=== PATIENT | male | born 1985 | race Hispanic/Latino ===

== ENCOUNTER 2018-02-27 13:54 | Emergency (ER) | payer SELFPAY ==
[2018-02-27] MEDS ORDERED: Lidocaine 1% PF 5 ML VIAL ONE (14:11)
[2018-02-27] MEDS ORDERED: Adacel (T-DAP) 0.5 ML VIAL ONE (14:11)
[2018-02-27] MEDS ORDERED: Bacitracin Zinc 1 Packet ONE (14:51)
== END 2018-02-27 15:21 | disposition home or self-care (01) ==
LOC: ERS 13:54
DX: S61.411A Laceration without foreign body of right hand, initial encounter (principal); W26.0XXA Contact with knife, initial encounter
CPT/HCPCS: 12002; 90471; 90715; J2001

== ENCOUNTER 2018-05-12 20:01 | Emergency (ER) | payer SELFPAY | END 2018-05-12 21:45 | disposition home or self-care (01) | LOC: ERS 20:01 | DX: I10 Essential (primary) hypertension (principal); F41.9 Anxiety disorder, unspecified; F17.290 Nicotine dependence, other tobacco product, uncomplicated | CPT/HCPCS: 93005 ==

== ENCOUNTER 2018-12-19 11:52 | Emergency (ER) | payer SELFPAY | END 2018-12-19 12:57 | disposition home or self-care (01) | LOC: ERS 11:52 | DX: L02.413 Cutaneous abscess of right upper limb (principal); F41.9 Anxiety disorder, unspecified; F17.290 Nicotine dependence, other tobacco product, uncomplicated | CPT/HCPCS: 99282 ==

== ENCOUNTER 2019-08-31 10:20 | Emergency (ER) | payer SELFPAY ==
[2019-08-31] MEDS ORDERED: Lidocaine 1% w/Epinephrine 1:100K 20 ML VIAL ONE (11:24)
== END 2019-08-31 11:59 | disposition home or self-care (01) ==
LOC: ERS 10:20
DX: S61.411A Laceration without foreign body of right hand, initial encounter (principal); I10 Essential (primary) hypertension; F41.9 Anxiety disorder, unspecified; W26.0XXA Contact with knife, initial encounter
CPT/HCPCS: 12001

== ENCOUNTER 2023-02-19 11:27 | Emergency (ER) | payer SELFPAY ==
[2023-02-19] MEDS ORDERED: predniSONE 20 MG TAB ONE (12:30)
[2023-02-19] MEDS ORDERED: Ibuprofen 800 MG TAB ONE (12:30)
== END 2023-02-19 12:55 | disposition home or self-care (01) ==
LOC: ERS 11:27
DX: J18.9 Pneumonia, unspecified organism (principal); I10 Essential (primary) hypertension
CPT/HCPCS: 71045; J7512

== ENCOUNTER 2023-02-25 02:39 | Emergency (ER) | payer SELFPAY ==
[2023-02-25 03:45] LABS: #Monocytes 0.8 thou/uL (0.11-0.59); #Neutrophils 6.6 thou/uL (1.40-6.50); %Basophils 0.5 % (0.0-1.0); %Eosinophils 0.5 % (0.0-10.0); %Monocytes 9.6 % (0.0-10.0); %Neutrophils 77.6 % (42.0-75.0); Hematocrit 42.1 % (42.0-52.0); Hemoglobin 13.9 g/dL (14.0-18.0); Mean Corpuscular Hemoglobin 29.2 pg (27.0-31.0); Mean Corpuscular Volume 88.4 fl (78.0-98.0); Mean Platelet Volume 10.6 fL (7.4-10.4); Platelet Count 278 10x3/uL (130-400); RBC Distribution Width 12.1 % (11.5-14.5); Red Blood Cell (RBC) Count 4.76 mill/uL (4.70-6.10); White Blood Cell (WBC) Count 8.4 10x3/uL (4.8-10.8)
[2023-02-25 04:06] LABS: Anion Gap 14 mmol/L (10-20); BUN (Urea Nitrogen) 10 mg/dL (8.9-20.6); Calc. Creatinine Clearance 0 mL/min (70-130); Calcium 9.3 mg/dL (7.8-10.44); Carbon Dioxide 22 mmol/L (22-29); Chloride 104 mmol/L (98-107); Estimated GFR 97; Glucose 111 mg/dL (70-105); Sodium 136 mmol/L (136-145)
== END 2023-02-25 05:48 | disposition home or self-care (01) ==
LOC: ERS 02:39
DX: J18.9 Pneumonia, unspecified organism (principal); I10 Essential (primary) hypertension
CPT/HCPCS: 36415; 71046; 80048; 85025